=== PATIENT | male | born 2005 | race Caucasian/White ===

== ENCOUNTER 2024-01-18 12:45 | Observation (INO) ==
[2024-01-18 13:59] LABS: Urine Appearance Clear; Urine Bilirubin Negative (Negative); Urine Blood Negative (Negative); Urine Color Yellow; Urine Glucose Negative (Negative); Urine Ketones 1+ (Negative); Urine Nitrite Negative (Negative); Urine Protein 1+ (>=30 mg/dL) (Negative); Urine Specific Gravity 1.033 (1.002-1.030); Urine Urobilinogen 1+ (Negative)
[2024-01-18] MEDS: Lactated Ringers 1000 ml BAG 1,000 ML IV ONE (13:59)
[2024-01-18 14:03] LABS: ABS Basophils 0.1 10^3/uL (0.0-0.1); ABS Lymphocytes 1.3 10^3/uL (1.0-4.8); ABS Monocytes 0.9 10^3/uL (0.0-1.1); ABS Neutrophils 14.5 10^3/uL (1.5-7.6); Hematocrit 46.8 % (38-53); Hemoglobin 15.8 g/dL (13.2-16.3); Lymphocyte % 7.6 %; Mean Corpuscular Hemoglobin 30.6 pg (27-33); Mean Corpuscular Hgb Conc 33.8 g/dL (31-36); Mean Corpuscular Volume 90.5 fL (80-97); Mean Platelet Volume 7.1 fL (7.5-11.2); Platelet Count 239 10^3/uL (150-450); Red Blood Count 5.17 10^6/uL (4.06-5.63); Red Cell Distribution Width 14.3 % (12-17); White Blood Count 16.8 10^3/uL (3.6-10.2)
[2024-01-18 14:55] LABS: Albumin 5.2 g/dL (3.2-5.2); Albumin/Globulin Ratio 2.1 (1-3); C Reactive Protein 98.4 mg/L (<8.01); Calcium 10.2 mg/dL (8.6-10.3); Creatinine, Serum 0.83 mg/dL (0.67-1.17); Globulin 2.5 g/dL (2-4); Potassium 3.6 mmol/L (3.5-5.0); Total Bilirubin 1.9 mg/dL (0.2-1.0); Total Protein 7.7 g/dL (6.4-8.9); eGFR CKD-EPI 128.5 (>60)
[2024-01-18 15:03] LABS: Urine Bacteria Absent /HPF (Absent); Urine Red Blood Cell Trace(0-2/hpf) /HPF (0-Trace); Urine White Blood Cell Absent /HPF (0-Trace)
[2024-01-18] MEDS: Iohexol 300 (CONTRAST) 10 ML SDV IV ONE (15:42)
[2024-01-18] MEDS: Piperacillin/Tazobac 3.375 BAG 3.375 GM/100 ML BAG IV ONE (17:50)
[2024-01-18] MEDS ORDERED: Bupivacaine 0.5% SDV PF 30ML VIAL ONE (18:35)
[2024-01-18] MEDS ORDERED: Lidocaine 1% w EPI 1:100,000 MDV 20 ML VIAL ONE (18:36)
[2024-01-18] MEDS ORDERED: Midazolam 2 mg/2 ml VIAL 1 mg/ml 2 ml VIAL (2 mg) ONE (18:38)
[2024-01-18] MEDS ORDERED: Propofol 10 MG/ML 20 ML BTL ONE (18:38)
[2024-01-18] MEDS ORDERED: fentaNYL 100 mcg/2 ml 50 MCG/ML VIAL ONE (18:38)
[2024-01-18] MEDS ORDERED: Naloxone 0.4 mg VIAL 0.4 mg/ml 1 ml VIAL IV PRN (19:05)
[2024-01-18] MEDS ORDERED: fentaNYL 100 mcg/2 ml 50 MCG/ML VIAL IV PRN (19:05)
[2024-01-18] MEDS ORDERED: Succinylcholine 200 mg VIAL 20 mg/ml 10 ml VIAL (200 mg) ONE (19:09)
[2024-01-18] MEDS ORDERED: Rocuronium 50 mg VIAL 10 mg/ml 5 ml VIAL (50 mg) ONE (19:09)
[2024-01-18] MEDS ORDERED: HYDROmorphone 0.5 MG/0.5 ML SYRINGE ONE (19:21)
[2024-01-18] MEDS ORDERED: NS 0.45% 1000 ml BAG 1,000 ML IV SCH (20:00)
[2024-01-18] MEDS ORDERED: Acetaminophen IV 1 GM/100ML 1,000 MG/100 ML BAG IV ONE (20:02)
[2024-01-18] MEDS ORDERED: Ondansetron 4 mg VIAL 2 MG/ML 2 ml VIAL ONE (20:02)
[2024-01-18] MEDS ORDERED: Metoclopramide 5 MG/ML VIAL (10 mg) ONE (20:02)
[2024-01-18] MEDS: Ondansetron 4 mg VIAL 2 MG/ML 2 ml VIAL IV PRN (20:05)
[2024-01-18] MEDS: Acetaminophen IV 1 GM/100ML 1,000 MG/100 ML BAG IV ONE (20:05)
[2024-01-18] MEDS: Metoclopramide 5 MG/ML VIAL (10 mg) IV PRN (20:07)
[2024-01-18] MEDS ORDERED: oxyCODONE/Acetamin 5/325 mg TAB PO PRN (20:51)
[2024-01-18] MEDS ORDERED: Ondansetron 4 mg VIAL 2 MG/ML 2 ml VIAL IV PRN (20:51)
[2024-01-18] MEDS: Lactated Ringers 1000 ml BAG 1,000 ML IV SCH ×2 (21:34→22:01)
[2024-01-19] MEDS: Buffered Lidocaine 1% SYRIN 1 ml INTRADERM ONE (00:47)
[2024-01-19] MEDS: Scopolamine 1 mg/72hr PATCH TRANSDERM ONE (00:48)
[2024-01-19 05:54] VITALS: BP 128/65
[2024-01-19] MEDS: Influenza Vaccine *TRI* 2024-25* 0.5 ML SYRINGE IM ONE (09:27)
== END 2024-01-19 10:10 | disposition home or self-care (01) ==
LOC: ED 12:45 → SSU 18:29 → OR 18:29 → SSU 20:56
PROVIDERS: ADMIT Surgery; ATTEND Surgery